=== PATIENT | female | born 1975 | race Caucasian/White ===

== ENCOUNTER 2017-04-22 13:16 | Emergency (ER) | payer MEDICAID ==
[~2017-04-22] VITALS: Ht 157.5 cm; Wt 78.0 kg
[2017-04-22 13:17] VITALS: BP 113/82
== END 2017-04-22 15:11 | disposition home or self-care (01) ==
LOC: ER 13:23
DX: R51 Headache (principal); V49.88XA Car occupant (driver) (passenger) injured in other specified transport accidents, initial encounter; Y93.89 Activity, other specified; Y92.410 Unspecified street and highway as the place of occurrence of the external cause; Y99.8 Other external cause status
CPT/HCPCS: 99281